=== PATIENT | male | born 2000 | race Caucasian/White ===

== ENCOUNTER 2021-05-15 00:34 | Emergency (ER) | payer OTHER ==
--- NOTE | 2021-05-15 01:27 | EDM.PDOC ---
ED HPI GENERAL MEDICAL PROBLEM - General Chief Complaint: Laceration Stated Complaint: RIGHT ARM CUT WITH GLASS Time Seen by Provider: 05/15/21 01:21 Source of Information: Reports: Patient, Family, RN Notes Reviewed History Limitations: Reports: No Limitations - History of Present Illness INITIAL COMMENTS - FREE TEXT/NARRATIVE: 21-year-old gentleman presents to the emergency department today with multiple lacerations to his right forearm he did this on a window Right Lower Arm Pain Score (Numeric/FACES): 2 - Related Data Allergies Allergy/AdvReac Type Severity Reaction Status Date / Time No Known Allergies Allergy Verified 05/15/21 00:50 Home Meds: Home Meds Methylphenidate [Concerta] 18 mg PO DAILY 05/15/21 [History] Past Medical History Musculoskeletal History: Reports: Fracture Psychiatric History: Reports: ADHD Social & Family History - Tobacco Use Tobacco Use Status *Q: Never Tobacco User - Caffeine Use Caffeine Use: Reports: None - Recreational Drug Use Recreational Drug Use: No ED ROS GENERAL - Review of Systems Review Of Systems: See Below Skin: Reports: Wound ED EXAM, SKIN/RASH Exam: See Below Front/Back Body Diagram: 1 - Multiple lacerations dorsal surface 3 cm laceration near the wrist, 1 cm superficial abrasion palmar surface half centimeter superficial abrasion palmar surface 1 cm abrasion at the elbow 1 cm abrasion base of the forearm avulsion 3 cm elbow ED SKIN PROCEDURES - Laceration/Wound Repair Right Arm Appearance: Subcutaneous, Linear Distal NVT: Neuro & Vascular Intact, No Tendon Injury Anesthetic Type: Local Local Anesthesia - Lidocaine (Xylocaine): 1% with EPI Local Anesthetic Volume: 2cc Skin Prep: Saline Saline Irrigation (cc's): 30 Exploration/Debridement/Repair: Wound Explored, In a Bloodless Field, Explored to Base Closed with: Sutures Lac/Wound length In cm: 3 Suture Size: 4-0 # of Sutures: 5 Suture Type: Nylon Tetanus Status Addressed: Yes Complications: No Right Hand Appearance: Superficial, Linear Skin Prep: Saline Saline Irrigation (cc's): 20 Exploration/Debridement/Repair: Wound Explored, In a Bloodless Field, Explored to Base Closed with: Dermabond Lac/Wound length In cm: 1 (Another wound was repaired the to half a centimeter palmar surface) Sterile Dressing Applied: None Complications: No Right Elbow Appearance: Subcutaneous, Linear Distal NVT: Neuro & Vascular Intact, No Tendon Injury Anesthetic Type: Local Local Anesthesia - Lidocaine (Xylocaine): 1% with EPI Local Anesthetic Volume: 1cc Skin Prep: Saline Saline Irrigation (cc's): 20 Exploration/Debridement/Repair: Wound Explored, In a Bloodless Field, Explored to Base Closed with: Sutures Lac/Wound length In cm: 1 Suture Size: 4-0 # of Sutures: 2 Suture Type: Nylon, Interrupted Sterile Dressing Applied: Nurse Tetanus Status Addressed: Yes Complications: No Left Arm Appearance: Superficial, Linear Distal NVT: Neuro & Vascular Intact, No Tendon Injury Anesthetic Type: Local Local Anesthesia - Lidocaine (Xylocaine): 1% with EPI Local Anesthetic Volume: 1cc Skin Prep: Saline Saline Irrigation (cc's): 30 Exploration/Debridement/Repair: Wound Explored, In a Bloodless Field, Explored to Base Closed with: Sutures Lac/Wound length In cm: 1 Suture Size: 4-0 # of Sutures: 2 Suture Type: Nylon Sterile Dressing Applied: Nurse Tetanus Status Addressed: Yes Complications: No Right Other Appearance: Superficial, Other (This is an avulsion near the elbow) Distal NVT: Neuro & Vascular Intact, No Tendon Injury Saline Irrigation (cc's): 20 Exploration/Debridement/Repair: Wound Explored, In a Bloodless Field, Explored to Base Closed with: Dermabond Lac/Wound length In cm: 3 Sterile Dressing Applied: None Tetanus Status Addressed: Yes Complications: No Course - Vital Signs Last Recorded V/S: Last Vital Signs Temp 208.6 F H 05/15/21 00:50 Pulse 110 H 05/15/21 00:50 Resp 18 05/15/21 00:50 BP 124/81 05/15/21 00:50 Pulse Ox 97 05/15/21 00:50 Departure - Departure Time of Disposition: 01:28 Disposition: Home, Self-Care 01 Condition: Fair Clinical Impression: Forearm laceration Qualifiers: Encounter type: initial encounter Laterality: right Qualified Code(s): S51.811A - Laceration without foreign body of right forearm, initial encounter - Discharge Information Instructions: Laceration Care, Adult Referrals: PCP,None [Primary Care Provider] - Additional Instructions: Suture removal in 10 days, follow wound care instruction sheet return to the clinic or return to the emergency department for suture removal call or return to the emergency department worsening of symptoms. Sepsis Event Note (ED) - Evaluation Sepsis Screening Result: No Definite Risk - Focused Exam Vital Signs: Vital Signs Temp Pulse Resp BP Pulse Ox 05/15/21 00:50 208.6 F H 110 H 18 124/81 97 - Assessment/Plan Plan: Assessment Acuity = acute Site and laterality = multiple lacerations to the right arm Etiology = trauma with glass Manifestations = none Location of injury = Home Lab values = none Plan Suture removal in 10 days follow wound care instruction sheet This note was dictated using [employer] voice recognition software please call with any questions on syntax or grammar.
[2021-05-15] MEDS ORDERED: Bacitracin Oint 1 GM U/D Packet TOP ONE (01:29)
== END 2021-05-15 01:44 | disposition home or self-care (01) ==
LOC: JP.ED 00:34
DX: S51.011A Laceration without foreign body of right elbow, initial encounter (principal); S61.411A Laceration without foreign body of right hand, initial encounter; W25.XXXA Contact with sharp glass, initial encounter
CPT/HCPCS: 12004; 99282-25